=== PATIENT | female | born 1945 | race Caucasian/White ===

== ENCOUNTER 2018-08-24 10:33 | Outpatient (CLI) | payer MEDICARE ==
--- NOTE | 2018-08-24 14:34 | MRI ---
LUMBAR SPINE MRI WITHOUT CONTRAST: DATE: 08/24/2018. COMPARISON: None. HISTORY: Lumbar radiculopathy, pain radiating down the right leg for 6 months. TECHNIQUE: Multiplanar, multisequence MR imaging of the lumbar spine without contrast. FINDINGS: The sagittal STIR imaging demonstrates no focal area of osseous marrow edema. There is lumbar spine dextroscoliosis, incompletely assessed on this exam. Assuming 5 lumbar-type ve rtebral bodies, conus medullaris terminates at L1-2. T12-L1: Intervertebral disk height is normal. No central canal or neural foraminal stenosis. Mild disk desiccation. L1-2: Mild disk space narrowing and disk desiccation. Small foraminal disk protrusion on the right. Mild bilateral facet hypertrophy. No central canal or neural foraminal stenosis. L2-3: Disk space narrowing, disk desiccation, and disk bulge with a small right foraminal disk protr usion. Mild right facet hypertrophy. No significant central canal or neural foraminal stenosis. L3-4: Bilateral facet hypertrophy, right greater than left. Disk space narrowing and disk desiccati on with mild disk bulge. No significant central canal or neural foraminal stenosis. L4-5: Disk space narrowing, disk desiccation, and disk bulge. Right lateral disk-osteophyte complex present. Mild facet hypertrophy and hypertrophy of the ligamentum flavum on the right. Mild right neural foraminal stenosis. No significant central canal or left neural foraminal stenosis. L5-S1: Disk space narrowing, disk desiccation, and mild disk bulge. No central canal stenosis. Mil d bilateral facet hypertrophy. No significant central canal or neural foraminal stenosis. The right kidney is not discretely visualized. There is lobulated T2 hyperintensity in the expected location of the right kidney which suggests chronic obstruction with chronic hydronephrosis and compl ete cortical atrophy. In addition, the imaged ureter is dilated on the right. IMPRESSION: 1. Degenerative change within the lumbar spine as detailed above. 2. Findings suggesting longstanding obstruction of the right system with hydroureter and hydronep hrosis. Clinical correlation and dedicated imaging of the abdomen and pelvis via CT advised if not p erformed in the past. CODE T POS: [facility]
== END 2018-08-24 10:34 | disposition home or self-care (01) ==
LOC: BICMRI 10:33
PROVIDERS: ATTEND Orthopaedic Surgery
DX: M47.26 Other spondylosis with radiculopathy, lumbar region (principal); M25.561 Pain in right knee
CPT/HCPCS: 72148

== ENCOUNTER 2018-09-13 08:46 | Outpatient (CLI) | payer MEDICARE ==
--- NOTE | 2018-09-13 12:05 | CT ---
CT ABDOMEN AND PELVIS WITH AND WITHOUT IV CONTRAST: Date: 09/13/18 HISTORY: Hydronephrosis. FINDINGS: There are mild chronic changes in the lung bases. Multiple nonenhancing low density lesions are seen in the liver, likely cysts. The spleen, pancreas, and adrenal glands are normal. No free air, free fl uid, or lymphadenopathy seen in the abdomen or pelvis. There are vascular calcifications without evid ence of aneurysmal dilatation of the abdominal aorta. Degenerative changes are present in the spine. The small bowel loops are not abnormally dilated. No calculi seen in the left kidney, either ureter, or the urinary bladder. There is a small focal agatha cific density in the right kidney, likely within the wall. There is severe right-sided hydroureterone phrosis with thinning of the right renal cortex. The hydroureter extends into the pelvis to the level of the distal ureter, proximal to the UVJ. No left-sided hydroureteronephrosis is seen. Tiny low den sity lesion in the left kidney on postcontrast images, likely cyst. There is normal contrast excretio n into the left ureter and the urinary bladder. IMPRESSION: 1. Severe right-sided hydroureteronephrosis. 2. Probable tiny right renal calculus. 3. Probable hepatic cysts. POS: [facility]
== END 2018-09-13 08:47 | disposition home or self-care (01) ==
LOC: BICCT 08:46
PROVIDERS: ATTEND Family Medicine
DX: N13.30 Unspecified hydronephrosis (principal)
CPT/HCPCS: 74178; 82565

== ENCOUNTER 2020-11-18 10:42 | Outpatient (CLI) | payer MEDICARE | END 2020-11-18 10:43 | disposition home or self-care (01) | LOC: BICMAMMO 10:42 | PROVIDERS: ATTEND Family Medicine | DX: Z12.31 Encounter for screening mammogram for malignant neoplasm of breast (principal); M81.0 Age-related osteoporosis without current pathological fracture; M85.852 Other specified disorders of bone density and structure, left thigh; Z80.3 Family history of malignant neoplasm of breast | CPT/HCPCS: 77063; 77067; 77080 ==

== ENCOUNTER 2021-11-16 09:14 | Outpatient (CLI) | payer MEDICARE | END 2021-11-16 09:15 | disposition home or self-care (01) | LOC: BICMAMMO 09:14 | PROVIDERS: ATTEND Family Medicine | DX: Z12.31 Encounter for screening mammogram for malignant neoplasm of breast (principal); Z80.3 Family history of malignant neoplasm of breast | CPT/HCPCS: 77063; 77067 ==

== ENCOUNTER 2023-01-04 12:13 | Outpatient (CLI) | payer MEDICARE | END 2023-01-04 12:14 | disposition home or self-care (01) | LOC: BICMAMMO 12:13 | PROVIDERS: ATTEND Family Medicine | DX: Z12.31 Encounter for screening mammogram for malignant neoplasm of breast (principal); M81.0 Age-related osteoporosis without current pathological fracture; M85.851 Other specified disorders of bone density and structure, right thigh; M85.852 Other specified disorders of bone density and structure, left thigh; Z80.3 Family history of malignant neoplasm of breast | CPT/HCPCS: 77063; 77067; 77080 ==